=== PATIENT | male | born 1950 | race Caucasian/White ===

== ENCOUNTER → 2019-12-27 15:52 | Outpatient (CLI) | payer OTHER, SELFPAY ==
--- NOTE | 2019-12-27 16:00 | ECHOCS_ITS ---
Reason For Study: CAD Procedure This was a 2D Doppler, Color Flow transthoracic echocardiogram. The study was technically difficult. Exam performed in department. Left Ventricle Mildly dilated left ventricle. The estimated ejection fraction is 40-45 %. Stage 1 diastolic dysfunction. Mid-anteroseptal : Hypokinetic. Anterior [place] : Hypokinetic. Right Ventricle Normal size and thickness. ICD or pacer leads identified within the right ventricle. Normal systolic function. Atria Normal left atrium. Normal right atrium. Normal atrial septum. Bubble contrast study negative for right to left interatrial shunt. Mitral Valve The mitral valve is structurally normal. No prolapse or stenosis seen. Tricuspid Valve Normal tricuspid valve. Trivial tricuspid valve insufficiency. Right ventricular systolic pressure estimated to be 30 mmHg. Aortic Valve Trisinus/trileaflet aortic valve. Mild focal thickening of the right coronary cusp. There is no aortic stenosis. Pulmonic Valve The pulmonic valve is not well visualized. Great Vessels Normal aortic root. Normal arch. Normal inferior vena cava. Inferior vena cava collapse with sniff. Pericardium/Pleural No pericardial effusion. Medication 22 gauge I.V. with prn adaptor inserted into right arm. Performed a rapid injection of agitated mix of 9 cc saline and 1cc air to assess for atrial septal defect. Diluted definity 4ml given slow IV push to enhance endocardial definition. MMode/2D Measurements & Calculations LVIDd: 4.9 cm IVSd: 0.93 cm Ao root diam: 3.1 cm LVIDs: 3.4 cm LVPWd: 1.0 cm RVDd: 3.6 cm FS: 30.4 % LAV(MOD-bp): 65.5 ml LA A4 area: 18.4 cm2 LA dimension(2D): 3.8 cm LAV(MOD-bp) Indexed: 31.1 ml/m2 LAV(MOD-sp2): 72.5 ml LAV(MOD-sp4): 50.6 ml RA A4 area: 14.9 cm2 Time Measurements MV dec time: 0.30 sec Doppler Measurements & Calculations MV E max guillermo: 57.7 cm/sec Lat Peak E' Guillermo: 9.5 cm/sec Med Peak E' Guillermo: 7.5 cm/sec MV A max guillermo: 73.9 cm/sec E/E' lat: 6.1 E/E' med: 7.7 MV E/A: 0.78 Ao V2 max: 129.8 cm/sec LV V1 max: 96.7 cm/sec PA V2 max: 125.7 cm/sec Ao max P.7 mmHg LV V1 max P.7 mmHg TR max guillermo: 252.1 cm/sec TR max P.4 mmHg Interpretation Summary Mildly dilated left ventricle. The estimated ejection fraction is 40-45 %. Stage 1 diastolic dysfunction. Mid-anteroseptal : Hypokinetic Anterior [place] : Hypokinetic Trivial tricuspid valve insufficiency. Right ventricular systolic pressure estimated to be 30 mmHg. Mild focal thickening of the right coronary cusp. There is no aortic stenosis. Bubble contrast study negative for right to left interatrial shunt. The study was technically difficult. Contrast injection was performed. There is no comparison study available. Ordering Physician: Melvin Zapien Referring Physician: Melvin Zapien Performed By: Maty William RDCS
== END ==
PROVIDERS: Referring Provider Orthopaedic Surgery; Visit Provider Orthopaedic Surgery
DX: I25.10 Atherosclerotic heart disease of native coronary artery without angina pectoris (principal)
CPT/HCPCS: 93306; Q9957; A4216; C8929